=== PATIENT | male | born 1945 | race Caucasian/White ===

== ENCOUNTER → 2017-01-28 | Outpatient (CLI) | payer BC, MEDICARE ==
[~2017-01-28] MED LIST: ASPIR 8181 MG PO; ELIQUIS5 MG PO; LEVAQUIN500 MG PO; LISINOPRIL-HCT1 EACH PO; PRAVASTATIN SOD40 MG PO; TOPROL XL50 MG PO; TYLENOL W/CODEIN1 E1 PO
== END ==
LOC: NM 01-21 14:00
DX: I25.110 Atherosclerotic heart disease of native coronary artery with unstable angina pectoris (principal)
CPT/HCPCS: 78452; 93017; A9502; J2785

== ENCOUNTER → 2021-02-16 | Outpatient (CLI) | payer BC, MEDICARE ==
[~2021-02-16] MED LIST changes: +DOXYCYCLINE HY100 MG PO; +HYDROCHLOROTH12.5 MG PO; +LOPRESSOR50 MG PO; +NORCO 5-325 TA1 EACH PO; +NORCO 7.5-3251 EACH PO; +PRINIVIL20 MG PO; +ZESTRIL40 MG PO
== END ==
LOC: KOH-I 10:44
DX: R06.02 Shortness of breath (principal)
CPT/HCPCS: 71046

== ENCOUNTER → 2021-04-18 | Outpatient (CLI) | payer BC, MEDICARE | LOC: HEART 5 08:47 | DX: I48.91 Unspecified atrial fibrillation (principal); I25.10 Atherosclerotic heart disease of native coronary artery without angina pectoris; I27.20 Pulmonary hypertension, unspecified; I08.1 Rheumatic disorders of both mitral and tricuspid valves | CPT/HCPCS: 93306 ==

== ENCOUNTER 2021-07-04 17:03 | Emergency (ER) | payer BC, MEDICARE | END 2021-07-05 02:20 | disposition home or self-care (01) | LOC: ER1 17:03 | DX: S90.31XA Contusion of right foot, initial encounter (principal); I25.10 Atherosclerotic heart disease of native coronary artery without angina pectoris; I10 Essential (primary) hypertension; Z95.5 Presence of coronary angioplasty implant and graft; W20.8XXA Other cause of strike by thrown, projected or falling object, initial encounter; Y92.009 Unspecified place in unspecified non-institutional (private) residence as the place of occurrence of the external cause | CPT/HCPCS: 73630; 90471; 90715; 99283 ==

== ENCOUNTER → 2022-02-26 | Outpatient (CLI) | payer BC, MEDICARE | LOC: NM 09:30 | DX: I25.10 Atherosclerotic heart disease of native coronary artery without angina pectoris (principal) | CPT/HCPCS: 78452; 93017; A9502; J2785 ==